=== PATIENT | female | born 1965 | race Hispanic/Latino ===

== ENCOUNTER 2019-09-05 07:55 | Outpatient (CLI) | payer OTHER ==
--- NOTE | 2019-09-05 08:47 | ULT ---
ABDOMINAL ULTRASOUND HISTORY: Elevated liver function tests FINDINGS: Liver: Increased echogenicity most likely attributable to diffuse fatty infiltration. No definite foc al hepatic lesion is seen. Portion of the left hepatic lobe is partially obscured due to shadowing from what appears to be the distal portion of the sternum. The liver is at the upper limits of normal in size measuring 17 cm in craniocaudal dimensions. Gallbladder: Not visualized. History of prior cholecystectomy. Common duct: Common duct is normal in caliber for postcholecystectomy changes measuring [address] Pancreas: The limited visualized pancreas demonstrates a normal sonographic appearance. IVC: Limited visualized IVC has a normal sonographic appearance. Aorta: The aorta is normal in caliber. Spleen: Within normal limits. Kidneys: Kidneys demonstrate a normal sonographic appearance bilaterally with the right kidney measur ing 10.7 cm in length, and the left kidney measures 11.1 cm in length. IMPRESSION: 1. Fatty infiltration of the liver. 2. Postcholecystectomy.
== END 2019-09-05 07:56 | disposition home or self-care (01) ==
LOC: NAV ULT 07:55
PROVIDERS: ATTEND Physician Assistant
DX: R94.5 Abnormal results of liver function studies (principal); K76.0 Fatty (change of) liver, not elsewhere classified; Z90.89 Acquired absence of other organs
CPT/HCPCS: 93975